=== PATIENT | female | born 1955 | race Caucasian/White ===

== ENCOUNTER 2017-07-07 06:08 | Day surgery (SDC) | payer BC ==
[2017-07-07] MEDS: LR 1,000 ML IV (06:44)
[2017-07-07] MEDS ORDERED: LIDOCAINE 2% INJ 100 MG/5 ML SDV (FOR ANES.) As Ordered (07:01)
[2017-07-07] MEDS ORDERED: fentaNYL 100 MCG/2 ML INJECTION (J3010) As Ordered (07:01)
[2017-07-07] MEDS ORDERED: PROPOFOL 200 MG/20 ML VIAL As Ordered (07:01)
[2017-07-07] MEDS ORDERED: MIDAZOLAM INJ 2 MG/2 ML VIAL (J2250) As Ordered (07:01)
[2017-07-07] MEDS ORDERED: ONDANSETRON 4MG/2ML VIAL (J2405) As Ordered (07:02)
[2017-07-07] MEDS ORDERED: dexameTHASONE 4 MG/ML 1ML VIAL (J1100) As Ordered (07:02)
[2017-07-07] MEDS: BUPIVACAINE HCL 0.5% 10 ML VIAL As Ordered (07:55)
[2017-07-07] MEDS: LIDOCAINE 1% SDV INJ 30 ML VIAL As Ordered (07:55)
[2017-07-07] MEDS: dexameTHASONE 4 MG/ML 1ML VIAL (J1100) As Ordered (08:30)
== END 2017-07-07 11:13 | disposition home or self-care (01) ==
LOC: M SDC 06:08
DX: M20.11 Hallux valgus (acquired), right foot (principal); M21.611 Bunion of right foot; M72.2 Plantar fascial fibromatosis; M77.30 Calcaneal spur, unspecified foot; I10 Essential (primary) hypertension; E03.9 Hypothyroidism, unspecified; K57.32 Diverticulitis of large intestine without perforation or abscess without bleeding; K58.9 Irritable bowel syndrome, unspecified; K21.9 Gastro-esophageal reflux disease without esophagitis; M12.9 Arthropathy, unspecified; M51.9 Unspecified thoracic, thoracolumbar and lumbosacral intervertebral disc disorder; F41.9 Anxiety disorder, unspecified; J45.909 Unspecified asthma, uncomplicated; R06.83 Snoring; Z88.0 Allergy status to penicillin; Z88.1 Allergy status to other antibiotic agents; Z88.2 Allergy status to sulfonamides; Z88.4 Allergy status to anesthetic agent; Z88.8 Allergy status to other drugs, medicaments and biological substances; Z79.899 Other long term (current) drug therapy; Z79.82 Long term (current) use of aspirin
CPT/HCPCS: 28296

== ENCOUNTER 2018-08-25 07:48 | Day surgery (SDC) | payer BC ==
[~2018-08-25] VITALS: Ht 165.1 cm; Wt 84.4 kg
[~2018-08-25 07:48] MED LIST: /MOXI40TA; ASPI1TAB PO; BLACK COHOSH; CALC600T60 PO; CALCIUM; CALCIUM/MAGNESIUM; CHEL50TA PO; FISHCAP; FLAG500T; GARL200T2 PO; GARLPOW; GAS-80CH; GLUCOSAMINE; HYDR-3713 PO; IRON28TA; MAGN400C2 PO; MAGNESIUM; MELA3TAB49 PO; MOTR200T4 PO; NIAC10TA; NS 1,000 ML IV ONE; PRIMROSE; PROBCAP13; ROBA500T; TRAM50TA2; VICO5TAB; VITA1CAP7 PO; VITA500T; VITA500T PO; VITACAP31; VITAMIN A; VITAMIN B COMPLE1; ZANA4CAP; ZINC220T2; [UNRECOGNIZED DRUG - OTHER]; [UNRECOGNIZED DRUG - OTHER]; black cohosh; garlic; vitamin b complex
[2018-08-25] MEDS ORDERED: PROPOFOL 200 MG/20 ML VIAL As Ordered ONE (08:38)
--- NOTE | 2018-08-25 08:47 | ROOR ---
Patient Name: Cari Mcrae Procedure Date: 08/25/2018 8:29 AM Date of : 1955 Age: 62 Room: [facility] Gender: Female Note Status: Finalized Procedure: Colonoscopy Indications: Screening for colorectal malignant neoplasm Providers: Raz Martins Jr, MD Referring MD: Mitch Ireland MD Requesting Provider: Medicines: Propofol per Anesthesia Complications: No immediate complications. Procedure: Pre-Anesthesia Assessment: - Prior to the procedure, a History and Physical was performed, and patient medications and allergies were reviewed. The patient is competent. The risks and benefits of the procedure and the sedation options and risks were discussed with the patient. All questions were answered and informed consent was obtained. Patient identification and proposed procedure were verified by the physician and the nurse in the pre-procedure area and in the procedure room. Mental Status Examination: alert and oriented. Airway Examination: normal oropharyngeal airway and neck mobility. Respiratory Examination: clear to auscultation. CV Examination: normal. ASA Grade Assessment: II - A patient with mild systemic disease. After reviewing the risks and benefits, the patient was deemed in satisfactory condition to undergo the procedure. The anesthesia plan was to use moderate sedation / analgesia (conscious sedation). Immediately prior to administration of medications, the patient was re-assessed for adequacy to receive sedatives. The heart rate, respiratory rate, oxygen saturations, blood pressure, adequacy of pulmonary ventilation, and response to care were monitored throughout the procedure. The physical status of the patient was re-assessed after the procedure. The Colonoscope was introduced through the anus and advanced to the cecum, identified by appendiceal orifice and ileocecal valve. The colonoscopy was performed without difficulty. The patient tolerated the procedure well. The quality of the bowel preparation was adequate. Findings: The rectum, recto-sigmoid colon, descending colon, transverse colon, ascending colon, cecum, appendiceal orifice, ileocecal valve and anastomosis appeared normal. A few small and large-mouthed diverticula were found in the descending colon. Impression: - The rectum, recto-sigmoid colon, descending colon, transverse colon, ascending colon, cecum, appendiceal orifice, ileocecal valve and colonic anastomosis are normal. - Diverticulosis in the descending colon. - No specimens collected. Recommendation: - Discharge patient to home (ambulatory). - Repeat colonoscopy in 10 years for screening purposes. Raz Martins MD Raz Martins Jr, MD 08/25/2018 8:47:13 AM This report has been signed electronically. Number of Addenda: 0 Note Initiated On: 08/25/2018 8:29 AM Estimated Blood Loss: Estimated blood loss: none.
[2018-08-25 09:24] VITALS: BP 141/89
== END 2018-08-25 09:25 | disposition home or self-care (01) ==
LOC: M OPP 07:48
PROVIDERS: ATTEND Surgery
DX: Z12.11 Encounter for screening for malignant neoplasm of colon (principal); K57.30 Diverticulosis of large intestine without perforation or abscess without bleeding; R12 Heartburn; E78.00 Pure hypercholesterolemia, unspecified; Z88.0 Allergy status to penicillin; Z88.2 Allergy status to sulfonamides; Z88.8 Allergy status to other drugs, medicaments and biological substances

== ENCOUNTER → 2018-12-23 | Outpatient (CLI) | payer BC ==
[~2018-12-23] MED LIST changes: -/MOXI40TA; -ASPI1TAB PO; +ASPI81TA26 PO; +AVEL1TAB2; +D-3-50003 PO; -NS 1,000 ML IV ONE; -VITA1CAP7 PO
--- NOTE | 2018-12-23 12:09 | REP ---
BILATERAL SCREENING DIGITAL MAMMOGRAM WITH 3D TOMOSYNTHESIS: There are no palpable abnormalities or other breast complaints. The the patient states she has not had a clinical breast examination ? In over a year. The the patient states she was not perform self-breast examinations. The Tyrer-Cuzick Score is: 7.5% Comparisons are 06/09/2012 and 12/17/2014. There are scattered areas of fibroglandular density. There is no dominant mass, micro calcific cluster or architectural distortion that would indicate malignancy. There is a stable nodule in the left breast, unchanged from both prior studies. There are no additional findings on 3D tomosynthesiss. There is no change from the prior study. Impression: BIRADS/ACR category 2 mammogram. Benign findings. Recommendation: Routine annual screening mammography. This mammogram was interpreted with the aid of a FDA approved computer-aided detection system. A. Negative mammogram reports should not delay biopsy if a dominant or clinically suspicious mass is present. B. Not all breast cancers are identified by mammography or tomosynthesis. C. Adenosis and dense breasts may obscure an underlying neoplasm. Patient letter M1. Electronically Signed by Jairo Ybarra MD 12/23/2018 12:00 P
== END ==
LOC: M WHC 10:55
PROVIDERS: ATTEND Family Medicine
DX: Z12.31 Encounter for screening mammogram for malignant neoplasm of breast (principal)

== ENCOUNTER 2020-03-20 22:18 | Emergency (ER) | payer BC ==
[~2020-03-20] VITALS: Ht 162.6 cm; Wt 82.1 kg
[~2020-03-20 22:18] MED LIST changes: +VITA-243 PO; -VITA500T PO
[2020-03-20] MEDS ORDERED: MELA3TAB49 PO (22:25)
[2020-03-20] MEDS ORDERED: ASPI81CH48 PO (22:25)
[2020-03-20] MEDS ORDERED: BOOSTRIX/ADACEL VACCINE (DIPHTH/PERTUSS/ACELL/TETANUS) 0.5ML SYR IM ONE (23:00)
[2020-03-20 23:19] VITALS: BP 148/58
== END 2020-03-20 23:21 | disposition home or self-care (01) ==
LOC: M ED 22:18
DX: S61.210A Laceration without foreign body of right index finger without damage to nail, initial encounter (principal); W27.2XXA Contact with scissors, initial encounter; Y92.019 Unspecified place in single-family (private) house as the place of occurrence of the external cause; Y93.E8 Activity, other personal hygiene; Y99.9 Unspecified external cause status; I10 Essential (primary) hypertension; E78.5 Hyperlipidemia, unspecified; Z88.0 Allergy status to penicillin; Z88.2 Allergy status to sulfonamides; Z88.8 Allergy status to other drugs, medicaments and biological substances; Z79.899 Other long term (current) drug therapy

== ENCOUNTER → 2021-08-04 | Outpatient (CLI) | payer MEDICARE ==
[~2021-08-04] MED LIST changes: +ASPI81CH48 PO
== END ==
LOC: M WUC 11:59
PROVIDERS: ATTEND Family Medicine
DX: M54.14 Radiculopathy, thoracic region (principal)

== ENCOUNTER → 2022-02-02 | Outpatient (REF) | payer MEDICARE | LOC: M LAB REF 16:20 | PROVIDERS: ATTEND Family Medicine | DX: D50.9 Iron deficiency anemia, unspecified (principal) ==

== ENCOUNTER → 2022-07-27 | Outpatient (CLI) | payer MEDICARE | LOC: M RAD 15:51 | PROVIDERS: ATTEND Physician Assistant Medical | DX: M79.661 Pain in right lower leg (principal) ==

== ENCOUNTER → 2022-08-18 | Outpatient (CLI) | payer MEDICARE | LOC: M EKG 13:04 | PROVIDERS: ATTEND Family Medicine | DX: R00.2 Palpitations (principal) ==